=== PATIENT | female | born 1980 | race Caucasian/White ===

== ENCOUNTER 2016-11-18 05:09 | Inpatient (IN) | payer OTHER ==
[2016-11-18] MEDS ORDERED: OLIVE OIL 118 ML BTL MISC PRN (05:25)
[2016-11-18] MEDS ORDERED: IBUPROFEN 600 MG TAB PO PRN (05:25)
[2016-11-18] MEDS ORDERED: TERBUTALINE SULFATE 1 MG/ML VIAL IV PRN (05:25)
[2016-11-18] MEDS ORDERED: OXYTOCIN/RINGERS LACTATE 1,000 ML IV PRN (05:25)
[2016-11-18] MEDS ORDERED: LR 1,000 ML IV PRN (05:25)
[2016-11-18] MEDS ORDERED: EPSOM SALT 454 GM TP PRN (05:25)
[2016-11-18] MEDS ORDERED: AMMONIA AROMATIC 1 EACH AMP IH ONE (05:33)
[2016-11-18] MEDS ORDERED: OLIVE OIL 118 ML BTL ONE (05:33)
[2016-11-18] MEDS ORDERED: LIDOCAINE 1% 300 MG/30 ML SDV ONE (05:33)
[2016-11-18] MEDS ORDERED: TERBUTALINE SULFATE 1 MG/ML VIAL ONE (05:34)
[2016-11-18] MEDS ORDERED: OXYTOCIN 10 UNIT/ML VIAL ONE (05:34)
[2016-11-18] MEDS ORDERED: MISOPROSTOL 200 MCG TAB ONE (05:34)
[2016-11-18 05:43] LABS: % IMMATURE GRANULYOCYTES 0.5 % (0.0-1.1); ADD DIFF? NO; ADD MORPH? NO; ADD SCAN? NO; ATYPICAL LYMPHOCYTE FLAG 0 (0-99); FRAGMENT RBC FLAG 0 (0-99); HEMATOCRIT 42.7 % (38.0-47.0); HEMOGLOBIN 14.7 g/dL (12.6-16.3); LEFT SHIFT FLG 10 (0-99); LIPEMIA HEMOLYSIS FLAG 90 (0-99); MEAN CELL HEMOGLOBIN 31.3 pg (27.9-34.1); MEAN CELL HEMOGLOBIN CONCENTR. 34.4 g/dL (32.4-36.7); MEAN CELL VOLUME 90.9 fL (81.5-99.8); MEAN PLATELET VOLUME 12.7 fL (8.7-11.7); PLATELET CLUMPS FLAG 0 (0-99); PLATELET COUNT 220 10^3/uL (150-400); RED CELL DISTRIBUTION WIDTH 13.6 % (11.5-15.2)
[2016-11-18 05:53] LABS: ALANINE AMINOTRANSFERASE 24 IU/L (9-52); ASPARTATE AMINOTRANSFERASE 26 IU/L (14-46); BILIRUBIN,TOTAL 0.5 mg/dL (0.1-1.4); BILIRUBIN-CONJUGATED 0.3 mg/dL (0.0-0.5); BILIRUBIN-UNCONJUGATED 0.2 mg/dL (0.0-1.1); CREATININE 0.7 mg/dL (0.6-1.0); GLOMERULAR FILTRATION RATE > 60; LACTATE DEHYDROGENASE 461 IU/L (313-618); URIC ACID 7.1 mg/dL (2.5-6.8)
--- NOTE | 2016-11-18 06:18 | GHP ---
[f rep st] HISTORY AND PHYSICAL DATE OF ADMISSION: 11/18/2016 ADMITTING DIAGNOSIS: Intrauterine at 40 and 6/7 weeks' gestation, in active labor. HISTORY OF PRESENT ILLNESS: Helen is a 36-year-old 1, para 0, with a last menstrual period of 02/05/2016 and an EDC of 11/12/2016, set by a 1st trimester ultrasound. She presented complaini ng of active labor contractions that began approximately midnight. At 4:30, the contractions increa sed to 2 minutes apart. Denies leakage of fluid. Has had small vaginal bleeding and had good movement. She presented to labor and delivery with strong, active contractions every 2-3 minutes. She denies headache, scotomata, right upper quadrant pain or other concerns and has had good movement. On examination, heart tones are in the 150s, reactive, moderate variability, catego ry 1. She is julia every 2-3 minutes. Her cervix is 480 and -2, and she is intact. The dexter ent will be admitted for active labor. PAST OB HISTORY: No history. This is her first . PAST GYNECOLOGICAL HISTORY: Nothing significant. She has a normal menstrual triad. No abnormal Pa ps. No other issues. PAST MEDICAL HISTORY: She has a history of asthma. PAST SURGICAL HISTORY: In 2007 she had a laparoscopy for a hiatal hernia repair and esophageal sphi ncter. ALLERGIES: She is allergic to aspirin with an unknown childhood reaction. MEDICATIONS: Include vitamins and DHA. SOCIAL HISTORY: She is . She lives with her , Donald. She denies tobacco, alcohol, and drug use. FAMILY HISTORY: Her mother has chronic hypertension. Father has coronary artery disease and had a stroke. Mother also has COPD, thyroid abnormalities. Her sister has lymphatic colitis and GERD. The patient has a distant history of depression as a teen, is not on any treatment. REVIEW OF SYSTEMS: Again, is negative except for active labor as above. OBJECTIVE: Today, her blood pressure is slightly elevated, first one was 155/100, second one diasto lics in the 90s. heart tones are 150s, reactive, moderate variability, category 1. Contracti ng every 2 minutes. Cervix 480, -2 and intact. ASSESSMENT AND PLAN: 36-year-old 1, para 0, at 40 and 6/7 weeks' gestation in active labor. The patient is admitted for active labor management. We will send a panel of pH labs as well as h er admission labs, and she desires nitrous for pain control for now. She will have active labor man agement. /[id number]/MODL
[2016-11-18] MEDS ORDERED: fentaNYL 100 MCG/2 ML INJ ONE (08:28)
[2016-11-18] MEDS ORDERED: fentaNYL 2MCG/ML/BUP 0.1% RTU 100 ML BAG EP ONE (08:29)
[2016-11-18] MEDS ORDERED: BUPIVACAINE 0.25% 30 ML SDV ONE (08:53)
[2016-11-18] MEDS ORDERED: PHENYLEPHRINE HCL 100 MCG/ML SYR IVP PRN (09:11)
[2016-11-18] MEDS ORDERED: fentaNYL 2MCG/ML/BUP 0.1% RTU 100 ML EP SCH (09:30)
--- NOTE | 2016-11-18 09:37 | OBPROG ---
OBG Labor Progress Note Assessment/Plan: Assessment: 36 y/o @ 40 6/7 wks who presents in active labor Plan: Cont expectant management s/p epidural FHTs - Cat II tacing with intermittent late decels Cont to closely monitor SROM - clear fluid Anticipate 11/18/16 09:34 Subjective: Pt is now comfortable, s/p epidural. Rico any HAs or visual changes. No RUQ/ epigastric pain. Objective: 11/18/16 05:25 11/18/16 05:25 Patient ABO/Rh O POSITIVE 11/18/16 05:25 Uric Acid 7.1 mg/dL (2.5-6.8) H 11/18/16 05:25 Total Bilirubin 0.5 mg/dL (0.1-1.4) 11/18/16 05:25 Conjugated Bilirubin 0.3 mg/dL (0.0-0.5) 11/18/16 05:25 Unconjugated Bilirubin 0.2 mg/dL (0.0-1.1) 11/18/16 05:25 AST 26 IU/L (14-46) 11/18/16 05:25 ALT 24 IU/L (9-52) 11/18/16 05:25 Lactate Dehydrogenase 461 IU/L (313-618) 11/18/16 05:25 - SVE Dilation (cm): 7 Effacement (%): 100 Station: -2 Rosas Current Contraction Pattern: Regular FHR (bpm): 150 FHR Pattern Variability: Moderate FHR Category: 2 (intermittent late decels) Membranes: SROM Amniotic Fluid Color: Clear Oxytocin Orders Assessment - Pre-Induction/Augmentation Assessment Gestational Age: 40 week(s) and 6 day(s) ICD10 Worksheet Patient Problems: Problems Problem Status Onset Active labor at term Acute - ICD10 Problem Qualifiers (1) Active labor at term
--- NOTE | 2016-11-18 09:46 | OBPROG ---
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 Objective: 11/18/16 05:25 11/18/16 05:25 Patient ABO/Rh O POSITIVE 11/18/16 05:25 Uric Acid 7.1 mg/dL (2.5-6.8) H 11/18/16 05:25 Total Bilirubin 0.5 mg/dL (0.1-1.4) 11/18/16 05:25 Conjugated Bilirubin 0.3 mg/dL (0.0-0.5) 11/18/16 05:25 Unconjugated Bilirubin 0.2 mg/dL (0.0-1.1) 11/18/16 05:25 AST 26 IU/L (14-46) 11/18/16 05:25 ALT 24 IU/L (9-52) 11/18/16 05:25 Lactate Dehydrogenase 461 IU/L (313-618) 11/18/16 05:25 - SVE Dilation (cm): 9 Effacement (%): 100 Station: -1 Rosas Current Contraction Pattern: Regular FHR (bpm): 160 FHR Pattern Variability: Moderate FHR Category: 2 (intermittent late decels - resuscitation performed) Membranes: AROM (forebag) Amniotic Fluid Color: Meconium Stained - Procedures Non-surgical Procedures: Amniotomy (forebag) Oxytocin Orders Assessment - Pre-Induction/Augmentation Assessment Gestational Age: 40 week(s) and 6 day(s) ICD10 Worksheet Patient Problems: Problems Problem Status Onset Active labor at term Acute - ICD10 Problem Qualifiers (1) Active labor at term
--- NOTE | 2016-11-18 12:07 | OBPROG ---
OBG Labor Progress Note Assessment/Plan: Assessment: 36 y/o @ 40 6/7 wks who presents in active labor Plan: Cont expectant management FHTs - Cat II tracing, intermittent late decels Cont to closely monitor Will start pushing Anticipate 11/18/16 12:03 Subjective: Pt is starting to feel pressure. Objective: 11/18/16 05:25 11/18/16 05:25 Patient ABO/Rh O POSITIVE 11/18/16 05:25 Uric Acid 7.1 mg/dL (2.5-6.8) H 11/18/16 05:25 Total Bilirubin 0.5 mg/dL (0.1-1.4) 11/18/16 05:25 Conjugated Bilirubin 0.3 mg/dL (0.0-0.5) 11/18/16 05:25 Unconjugated Bilirubin 0.2 mg/dL (0.0-1.1) 11/18/16 05:25 AST 26 IU/L (14-46) 11/18/16 05:25 ALT 24 IU/L (9-52) 11/18/16 05:25 Lactate Dehydrogenase 461 IU/L (313-618) 11/18/16 05:25 - SVE Dilation (cm): 10 Effacement (%): 100 Station: +1 Dilation Complete Date: 11/18/16 Dilation Complete Time: 11:40 Rosas FHR (bpm): 160 FHR Pattern Variability: Moderate FHR Category: 2 (intermittent late decels - resiscitation performed) Membranes: AROM (forebag) Amniotic Fluid Color: Meconium Stained - Procedures Non-surgical Procedures: Amniotomy (forebag) Oxytocin Orders Assessment - Pre-Induction/Augmentation Assessment Gestational Age: 40 week(s) and 6 day(s) ICD10 Worksheet Patient Problems: Problems Problem Status Onset Active labor at term Acute - ICD10 Problem Qualifiers (1) Active labor at term
[2016-11-18] MEDS ORDERED: AMPICILLIN SODIUM 2 GM/10 ML VIAL ONE (13:49)
[2016-11-18] MEDS ORDERED: NS 100 ML BAG (MINI-BAG) IV ONE (13:50)
[2016-11-18] MEDS ORDERED: ACETAMINOPHEN 325 MG TAB PO PRN (14:23)
[2016-11-18] MEDS ORDERED: HYDROCORTISONE 0.5% CREAM TP PRN (14:23)
[2016-11-18] MEDS ORDERED: HYDROCODONE/APAP 5/325 TAB PO PRN (14:23)
[2016-11-18] MEDS ORDERED: SIMETHICONE 80 MG TAB CHEW PO PRN (14:23)
--- NOTE | 2016-11-18 14:23 | OBDEL ---
Info Type: Vaginal GBS+: No Indications for Delivery: Spontaneous Labor Vaginal Delivery - Labor and Delivery Onset of Contractions Date: 11/18/16 Onset of Contractions Time: 00:00 Onset of Contractions Type: Spontaneous Rupture of Membranes Date: 11/18/16 Rupture of Membranes Time: 08:15 Rupture of Membranes Type: Spontaneous (AROM of forebag-meconium) Amniotic Fluid Color: Clear Dilation Complete Date: 11/18/16 Dilation Complete Time: 11:40 Placenta Delivery Date: 11/18/16 Placenta Delivery Time: 13:55 Total Hours of Labor: 13 Non-surgical Procedures: Amniotomy (forebag) Laceration: 2nd Degree Repair: 3-0, Vicryl Vaginal Sponge Count Correct: Yes Vaginal Needle Count Correct: Yes Vaginal Sweep Performed: Yes EBL: 350 cc Delivery Events: Retained Placenta (Sean curette was used under u/s guidance to remove any remaining placenta) Data Rosas Delivery Date: 11/18/16 Delivery Time: 13:42 TONA: 11/13/16 Gestational Age: 40 week(s) and 5 day(s) Sex of : Female Score (1 Min): 8 Score (5 Min): 8 ICD10 Worksheet Patient Problems: Problems Problem Status Onset Active labor at term Acute (spontaneous vaginal delivery) Acute - ICD10 Problem Qualifiers (1) Active labor at term (2) (spontaneous vaginal delivery)
[2016-11-18] MEDS ORDERED: ceFAZolin 2 GM/DEXTROSE 100 ML IV ONE (14:24)
[2016-11-18] MEDS: DOCUSATE SODIUM 100 MG CAP PO PRN (20:59)
[2016-11-18] MEDS: IBUPROFEN 600 MG TAB PO PRN (21:00)
[2016-11-19] MEDS: IBUPROFEN 600 MG TAB PO PRN ×4 (02:29→20:31)
[2016-11-19] MEDS: DOCUSATE SODIUM 100 MG CAP PO PRN ×2 (08:44→20:31)
--- NOTE | 2016-11-19 13:19 | OBPP ---
Progress Note Assessment/Plan: Assessment: 36 y/o PPD #1 s/p doing well Plan: support and routine PPC. Likely d/c home tomorrow. 11/19/16 13:18 Subjective: Pt is doing well today. She perineal pain and cramping is controlled with Ibuprofen. She is ambulating, voiding well and has min lochia. Breast feeding is progressing and baby has a good latch. Objective: 11/18/16 05:25 11/18/16 05:25 Patient ABO/Rh O POSITIVE 11/18/16 05:25 Uric Acid 7.1 mg/dL (2.5-6.8) H 11/18/16 05:25 Total Bilirubin 0.5 mg/dL (0.1-1.4) 11/18/16 05:25 Conjugated Bilirubin 0.3 mg/dL (0.0-0.5) 11/18/16 05:25 Unconjugated Bilirubin 0.2 mg/dL (0.0-1.1) 11/18/16 05:25 AST 26 IU/L (14-46) 11/18/16 05:25 ALT 24 IU/L (9-52) 11/18/16 05:25 Lactate Dehydrogenase 461 IU/L (313-618) 11/18/16 05:25 Temp Pulse Resp BP Pulse Ox 36.3 C 78 16 114/77 96 11/19/16 08:00 11/19/16 08:00 11/19/16 08:00 11/19/16 08:00 11/19/16 08:00 Uterine Position/Fundal Height: Umbilicus -2 Uterine Tone: Firm Physical Exam - Physical Exam General Appearance: WD/WN, alert, no apparent distress Neck: non-tender, full range of motion, supple Respiratory: chest non-tender, lungs clear, normal breath sounds Cardiac/Chest: regular rate, rhythm Abdomen: normal bowel sounds Extremities: swelling (no), Chantal's sign (neg)
[2016-11-20] MEDS: IBUPROFEN 600 MG TAB PO PRN ×3 (02:33→15:20)
[2016-11-20 08:40] VITALS: BP 128/84; PULSE 75; RESP 16; TEMP 98.4; O2SAT 94
[2016-11-20] MEDS: DOCUSATE SODIUM 100 MG CAP PO PRN (08:45)
--- NOTE | 2016-11-20 12:35 | OBPP ---
Progress Note Assessment/Plan: Assessment:doing well pain well managed vs wnl scant rubra lochia voiding with out difficulty ff@u Plan:dischagre to home with instructions fu 1 week for bp check 4 weeks and 6 weeks discussed , ss of infection, pelvic rest, rest, pain management, depressionpericare vaerbalized understanding of all of the above 11/20/16 12:32 Subjective: Doing well denies difficulties Objective: 11/18/16 05:25 11/18/16 05:25 Patient ABO/Rh O POSITIVE 11/18/16 05:25 Uric Acid 7.1 mg/dL (2.5-6.8) H 11/18/16 05:25 Total Bilirubin 0.5 mg/dL (0.1-1.4) 11/18/16 05:25 Conjugated Bilirubin 0.3 mg/dL (0.0-0.5) 11/18/16 05:25 Unconjugated Bilirubin 0.2 mg/dL (0.0-1.1) 11/18/16 05:25 AST 26 IU/L (14-46) 11/18/16 05:25 ALT 24 IU/L (9-52) 11/18/16 05:25 Lactate Dehydrogenase 461 IU/L (313-618) 11/18/16 05:25 Temp Pulse Resp BP Pulse Ox 36.9 C 75 16 128/84 H 94 11/20/16 08:00 11/20/16 08:00 11/20/16 08:00 11/20/16 08:00 11/20/16 08:00 Uterine Position/Fundal Height: At Umbilicus Physical Exam - Physical Exam General Appearance: WD/WN, alert, no apparent distress Abdomen: other (ffu) Extremities: Chantal's sign (negative bilaterally) DTR- Lower Extremities: Knee (R): 1+ (no clonus bilaterally), Knee (L): 1+ Skin: normal color, warm/dry Neuro/Psych: no motor/sensory deficits, alert, normal mood/affect, oriented x 3
--- NOTE | 2016-11-20 17:13 | OBGCSDC ---
General Delivery Information - General Info : 1 Para: 1 Delivery Physician/CNM: Donna Palacio Labs: Patient ABO/Rh O POSITIVE 11/18/16 05:25 Hct 42.7 % (38.0-47.0) 11/18/16 05:25 Vaginal - Diagnosis Labor: Spontaneous Rupture of Membranes Type: Spontaneous (AROM of forebag-meconium) Amniotic Fluid Color: Clear Laceration: 2nd Degree Repair: 3-0, Vicryl Delivery Events: Retained Placenta (Sean curette was used under u/s guidance to remove any remaining placenta) - Operations/Procedures Non-surgical Procedures: Amniotomy (forebag) L&D Analgesia/Anesthesia Type: Epidural - Hospital Course Antepartum: uncomplicated Intrapartum: Active labor- 4ic-fcpnmics-jvfl-arom meconium 10/+2 pushed x 2 hours : Elevated bp 135/90 doing well otherwise denies PIH symptoms, well operneum approximated1 week 4 week and 6 week fi hct 42 - Delivery Non-surgical Procedures: Amniotomy (forebag) L&D Analgesia/Anesthesia Type: Epidural [place] Data [facility]as Delivery Date: 11/18/16 Delivery Time: 13:42 TONA: 11/12/16 Gestational Age: 41 week(s) and 1 day(s) Sex of : Female [place] Weight (gm): 3224 g Score (1 Min): 8 Score (5 Min): 8 Discharge Information - Discharge Information Condition: Good
== END 2016-11-20 19:00 | disposition home or self-care (01) | DRG 767 ==
LOC: FLD 05:09 → FOB 16:15
PROVIDERS: ADMIT Obstetrics & Gynecology; ATTEND Obstetrics & Gynecology
PROC: 10E0XZZ Delivery of Products of Conception, External Approach (ICD-10-PCS; principal; 2016-11-18)
PROC: 10D17ZZ Extraction of Products of Conception, Retained, Via Natural or Artificial Opening (ICD-10-PCS; principal; 2016-11-18)
DX: O70.1 Second degree perineal laceration during delivery (principal); Z37.0 Single live birth; O73.0 Retained placenta without hemorrhage; Z3A.40 40 weeks gestation of pregnancy
CPT/HCPCS: J0290; J0690; J2590; J3010; J3105

== ENCOUNTER → 2016-11-30 | Outpatient (CLI) | payer OTHER | LOC: FLACT 10:16 | PROVIDERS: ATTEND Obstetrics & Gynecology | DX: O92.79 Other disorders of lactation (principal) | CPT/HCPCS: G0463 ==

== ENCOUNTER → 2017-01-05 | Outpatient (CLI) | payer OTHER ==
[~2017-01-05] MED LIST: LIDOCAINE 1% 300 MG/30 ML SDV ONE
== END ==
LOC: FIMAGING 16:33
PROVIDERS: ATTEND Obstetrics & Gynecology
PROC: 0H9T3ZX Drainage of Right Breast, Percutaneous Approach, Diagnostic (ICD-10-PCS; principal; 2017-01-05)
DX: O92.79 Other disorders of lactation (principal)

== ENCOUNTER → 2017-01-08 | Outpatient (CLI) | payer OTHER | LOC: FIMAGING 13:40 | PROVIDERS: ATTEND Obstetrics & Gynecology | PROC: 0H9T3ZZ Drainage of Right Breast, Percutaneous Approach (ICD-10-PCS; principal; 2017-01-08) | DX: O91.13 Abscess of breast associated with lactation (principal) ==

== ENCOUNTER → 2017-01-12 | Outpatient (CLI) | payer OTHER | LOC: FIMAGING 13:56 | PROVIDERS: ATTEND Obstetrics & Gynecology | DX: N61.1 Abscess of the breast and nipple (principal) ==